=== PATIENT | male | born 1970 | race Caucasian/White ===

== ENCOUNTER → 2020-10-31 | Outpatient (CLI) | payer BC ==
--- NOTE | 2020-10-31 12:24 | Diagnostic Imaging Report ---
PROCEDURE: MRI right joint lower extremity without contrast. TECHNIQUE: Multiplanar, multisequence non contrast-enhanced MRI of the right lower extremity was accomplished. INDICATION: Injury to the knee while stepping down the stairs EXAMINATION: Right knee MRI without contrast 10/31/2020 FINDINGS: There is diffuse marked T2 hyperintensity throughout the medial femoral condyle which is nonspecific but likely due to bone contusion. There is mild irregularity of the overlying cartilage along the mid and posterior weightbearing surface of the femoral condyle. On the sagittal proton density fat saturated sequence image #6 mild irregularity of the cortex is questioned and a small developing early osteochondral defect not excluded. No measurable defects seen at this time. The remaining osseous structures unremarkable. Extensor mechanism ACL and PCL intact. MCL and lateral collateral ligamentous complex intact. Medial and lateral menisci intact. There is mild/moderate loss of cartilage in medial joint compartment with minimal thinning of the cartilage in the lateral joint space. There is moderate loss of cartilage over the medial patellar facet with subchondral cystic change in the patella. There is a small joint effusion. Cystic changes in the posterior lateral aspect of the knee likely small ganglia. IMPRESSION: 1. Large focus of abnormal signal intensity predominantly throughout the medial femoral condyle likely due to bone contusion although an early developing osteochondral defect is not excluded as noted above. 2. Ligaments, tendons and menisci intact 3. Tricompartmental degenerative disease. Dictated by: Dictated on workstation # [id number]
== END ==
LOC: RAD 11:00
PROVIDERS: ATTEND Nurse Practitioner
DX: S89.91XA Unspecified injury of right lower leg, initial encounter (principal); M17.11 Unilateral primary osteoarthritis, right knee; W10.9XXA Fall (on) (from) unspecified stairs and steps, initial encounter
CPT/HCPCS: 73721

== ENCOUNTER 2022-05-01 05:48 | Outpatient (CLI) | payer BC ==
[~2022-05-01] VITALS: Ht 175.3 cm; Wt 113.4 kg
[2022-05-06] MEDS ORDERED: ESZO3TAB30 PO (13:55)
== END 2022-05-06 14:00 | disposition home or self-care (01) ==
LOC: PREOP 05:48
PROVIDERS: ATTEND Surgery
DX: Z01.818 Encounter for other preprocedural examination (principal)

== ENCOUNTER 2022-05-14 09:56 | Day surgery (SDC) | payer BC ==
[~2022-05-14] VITALS: Ht 175.3 cm; Wt 113.4 kg
[~2022-05-14 09:56] MED LIST: ESZO3TAB30 PO
[2022-05-14] MEDS ORDERED: LACTATED RINGERS 1,000 ML IV STA (10:10)
[2022-05-14 10:35] VITALS: BP 147/99
[2022-05-14] MEDS ORDERED: PROPOFOL INJECTION 50 ML IV ONE (11:18)
[2022-05-14] MEDS ORDERED: MIDAZOLAM 2 MG/2 ML (VERSED) VIAL ONE (11:18)
--- NOTE | 2022-05-14 11:43 | Progress Note-Post Operative ---
Post-Operative Progess Note Surgeon (s)/Upper Shaper (s) Surgeon BELINDA BOWMAN DO Upper Shaper: na Pre-Operative Diagnosis Screening Colonoscopy Post-Operative Diagnosis Prostate nodule Rectal and Ascending colon polyps Procedure & Operative Findings Date of Procedure 05/14/22 Procedure Performed/Findings Colonoscopy with hot biopsyx1, snare polypectomy x2 Anesthesia Type per metal cabinet finisher Estimated Blood Loss Estimated blood loss (mL): none Specimens/Packing Specimens Removed Rectal polyp x2, ascending colon x1 BELINDA BOWMAN DO May 14, 2022 11:43
--- NOTE | 2022-05-14 11:44 | Discharge Inst-Simple/Standard ---
Discharge Inst-Standard Patient Instructions/Follow Up Plan of Care/Instructions/FU: 2 weeks Haile Activity as Tolerated: Yes Discharge Diet: Regular Diet BELINDA BOWMAN DO May 14, 2022 11:44
[2022-05-14 11:45] VITALS: BP 91/51
--- NOTE | 2022-05-14 11:49 | Anesthesia-General Post-Op ---
MAC Patient Condition Mental Status/LOC: Same as Preop Cardiovascular: Satisfactory Nausea/Vomiting: Absent Respiratory: Satisfactory Pain: Controlled Complications: Absent Post Op Complications Complications None Follow Up Care/Instructions Patient Instructions None needed. Anesthesiology Discharge Order Discharge Order Patient is doing well, no complaints, stable vital signs, no apparent adverse anesthesia problems. No complications reported per nursing. TOSIN PEREA CRNA May 14, 2022 11:49
[2022-05-14 11:50] VITALS: BP 92/52
[2022-05-14 11:55] VITALS: BP 101/56
[2022-05-14 12:16] VITALS: BP 101/56
--- NOTE | 2022-05-14 16:27 | OPERATIVE REPORT ---
DATE OF SERVICE: 05/14/2022 PREOPERATIVE DIAGNOSIS: Screening colonoscopy. POSTOPERATIVE DIAGNOSIS: Questionable small prostate nodule, colon polyps x3. PROCEDURE: Colonoscopy with hot biopsy polypectomy x1, snare polypectomy x2. SURGEON: Belinda Be DO ANESTHESIA: Per CHOCOLATE MAKER. ESTIMATED BLOOD LOSS: None. COMPLICATIONS: None. INDICATIONS: The patient is a 51-year-old male, needing screening colonoscopy. He understands risks and benefits of procedure and wishes to proceed. Consent was signed in chart. DESCRIPTION OF PROCEDURE: The patient was taken to endoscopy suite, placed in left lateral recumbent position. Timeout was performed. Digital rectal exam was performed noting a small questionable prostate nodule, but no other pathology. Scope was inserted in the rectum, advanced all the way to the cecum with minimal difficulty. Prep was adequate. Scope was then slowly retracted back. No polyps, masses or ulcerations in the cecum. In the ascending colon, a very small polyp was present, which hot biopsy polypectomy was performed. Scope was then continuously retracted back. No polyps, masses or ulcerations within the remainder of the ascending, transverse, descending and sigmoid colon. Once in the rectum, 2 larger polyps were present, which snare polypectomy was performed. Scope was retroflexed, noting no other pathology. Scope was returned to its normal position, slowly withdrawn until completely removed. The patient tolerated the procedure well without any complications, taken to recovery room in stable condition. RECOMMENDATIONS: We recommend getting a prostate ultrasound. We will repeat colonoscopy in one year and make sure the rectal polyps have been eradicated. Job ID: [id number] DocumentID: [id number] Dictated Date: 05/14/2022 11:50:44 [employer] Commerce Specialist Date: 05/14/2022 16:25:00 Dictated By: BELINDA BE DO
== END 2022-05-14 12:30 | disposition home or self-care (01) ==
LOC: ENDO 09:56
PROVIDERS: ATTEND Surgery
DX: Z12.11 Encounter for screening for malignant neoplasm of colon (principal); D12.2 Benign neoplasm of ascending colon; D12.8 Benign neoplasm of rectum; E66.9 Obesity, unspecified; Z68.36 Body mass index [BMI] 36.0-36.9, adult; F17.210 Nicotine dependence, cigarettes, uncomplicated; N40.2 Nodular prostate without lower urinary tract symptoms